=== PATIENT | female | born 1995 | race Caucasian/White ===

== ENCOUNTER → 2021-06-01 14:48 | Observation (INO) ==
[2021-06-01 14:39] LABS: Bilirubin,Urine Negative (Negative); Blood,Urine Negative (Negative); Clarity,Urine Turbid (Clear); Color,Urine Colorless (Yellow); Glucose,Urine (UA) Normal (Normal); Ketones,Urine Negative (Negative); Leukocyte Esterase,Urine Large (Negative); Nitrite,Urine Negative (Negative); Protein,Urine Negative (Neg-Trace); RBC,Urine 30-50 per hpf (0-3); Specific Gravity,Urine 1.005 (1.010-1.025); Squamous Epithelial Cell,Urine Moderate per hpf (None-Few); Urobilinogen,Urine Normal (Normal)
[2021-06-01 16:01] LABS: Candida DNA DETECTED (Not Detect); Gardnerella DNA DETECTED (Not Detect); Trichomonas DNA Not Detected (Not Detect)
== END | disposition home or self-care (01) ==
LOC: 1NENULAB
PROVIDERS: ADMIT Obstetrics & Gynecology; ATTEND Obstetrics & Gynecology

== ENCOUNTER 2021-07-21 04:00 | Inpatient (IN) ==
[2021-07-21] MEDS ORDERED: Famotidine 20 MG/2 ML VIAL IVP PRN (04:10)
[2021-07-21] MEDS ORDERED: Azithromycin 500 MG in 0.9 % Sodium Chloride 250 ML IVPB PRN (04:10)
[2021-07-21] MEDS ORDERED: miSOPROStoL 25 MCG TABLET PO PRN (04:10)
[2021-07-21] MEDS ORDERED: Ondansetron 4 MG/2 ML VIAL IVP PRN (04:10)
[2021-07-21] MEDS ORDERED: Naloxone 0.4 MG/ML INJ IVP PRN (04:10)
[2021-07-21] MEDS ORDERED: *HR* FentaNYL (PF) 100 MCG/2 ML VIAL IVP PRN (04:10)
[2021-07-21] MEDS ORDERED: Lidocaine 1% 20 ML MDV INFILT PRN (04:10)
[2021-07-21] MEDS ORDERED: Metoclopramide 10 MG/2 ML VIAL IVP PRN (04:10)
[2021-07-21 04:49] LABS: Basophils % 0.3 %; Eosinophils # 0.1 K/mcL (0.0-0.6); Eosinophils % 0.6 %; Hematocrit 36.2 % (35.3-44.9); Hemoglobin 12.3 g/dL (11.5-15.4); Immature Granulocytes % 0.5 % (0-4); Lymphocytes # 3.2 K/mcL (0.6-4.6); Lymphocytes % 29.1 %; Mean Corpuscular Hemoglobin 30.8 pg (28.0-33.3); Mean Corpuscular Volume 90.7 fL (83.0-100.0); Mean Platelet Volume 12.6 fL (9.4-12.4); Monocytes % 9.6 %; Neutrophils # 6.5 K/mcL (1.6-8.9); Platelet Count 157 K/mcL (140-400); Red Blood Count 3.99 M/mcL (3.82-4.97); Red Cell Distribution Width 12.3 % (11.5-14.5); Segmented Neutrophils % 59.9 %; White Blood Count 10.9 K/mcL (4.3-11.1)
[2021-07-21 04:59] LABS: Amphetamine Screen,Urine Negative ng/mL (Cutoff=1000); Barbiturate Screen,Urine Negative ng/mL (Cutoff=200); Benzodiazepines Screen,Urine Negative ng/mL (Cutoff=200); Cannabinoid Screen,Urine Negative ng/mL (Cutoff = 50); Cocaine Screen,Urine Negative ng/mL (Cutoff= 300); Creatinine,Urine 47 mg/dL; Opiate Screen,Urine Negative ng/mL (Cutoff=300); Phencyclidine Screen,Urine Negative ng/mL (Cutoff=25); Protein/Creatinine Ratio,Urine 0.17 mg/mg (0.00-0.20)
[2021-07-21 05:09] LABS: Alanine Aminotransferase 9 Units/L (7-52); Aspartate Amino Transferase 17 Units/L (13-39); BUN/Creatinine Ratio 10 (6-26); Blood Urea Nitrogen 7 mg/dL (6-20); Lactate Dehydrogenase 146 Units/L (140-271); Uric Acid 5.7 mg/dL (2.3-7.6); eGFR For African Americans > 60 (> 60); eGFR For Non-African Americans > 60 (> 60)
[2021-07-21] MEDS ORDERED: Penicillin G Potassium 5,000,000 UNIT in 0.9 % Sodium Chloride Mini Bag 100 ML IVPB ONE (05:12)
[2021-07-21 05:26] LABS: Influenza A PCR Negative (Negative); Influenza B PCR Negative (Negative); Resp. Syncytial Virus PCR Negative (Negative)
[2021-07-21 05:27] LABS: SARS-CoV-2 by PCR (In House) Positive (Negative)
[2021-07-21] MEDS ORDERED: Ringers Solution, Lactated 1,000 ML ONE ×3 (05:31→14:59)
[2021-07-21] MEDS ORDERED: EPHEDrine 50 MG/ML VIAL IVP PRN (06:11)
[2021-07-21] MEDS: *HR* Nalbuphine 10 MG/ML AMPUL IV PRN ×2 (10:52→12:53)
[2021-07-21] MEDS: Penicillin G Potassium 2,500,000 UNIT/105 ML MLS IVPB SCH ×4 (11:15→23:23)
[2021-07-21] MEDS ORDERED: Oxytocin 30 UNIT/503 ML BAG IVC SCH (11:15)
[2021-07-21] MEDS: Epidural Premix (fent/bupiv) 110 ML EP SCH ×2 (13:24→21:00)
[2021-07-21] MEDS ORDERED: Ringers Solution, Lactated 1,000 ML IVC SCH (15:00)
[2021-07-21] MEDS ORDERED: Famotidine 20 MG/2 ML VIAL IVP ONE (23:12)
[2021-07-22] MEDS: Epidural Premix (fent/bupiv) 110 ML EP SCH (02:45)
[2021-07-22] MEDS: Penicillin G Potassium 2,500,000 UNIT/105 ML MLS IVPB SCH (04:08)
[2021-07-22] MEDS ORDERED: Gentamicin 100 MG in 0.9 % Sodium Chloride 100 ML IVPB SCH (06:30)
[2021-07-22] MEDS ORDERED: *HR* HYDROmorphone (PF) 1 MG/ML SYRINGE IVP ONE (09:11)
[2021-07-22] MEDS ORDERED: Benzocaine/Menthol 56 GM AEROSOL SPRAY TP PRN (11:19)
[2021-07-22] MEDS ORDERED: OXYTOCIN/RINGERS LACTATE 10 UNIT/166.6 ML BAG IVC ONE (11:19)
[2021-07-22] MEDS ORDERED: Measles/Mumps/Rubella Vacc 0.5 ML VIAL SQ PRN (11:19)
[2021-07-22] MEDS ORDERED: Rho Immune Globulin 1,500 UNIT SYRINGE IM PRN (11:19)
[2021-07-22] MEDS ORDERED: Lanolin 7 G OINT...G. TP PRN (11:19)
[2021-07-22] MEDS ORDERED: Ondansetron ODT 4 MG TAB.RAPDIS SL PRN (11:19)
[2021-07-22] MEDS: *HR* OxyCODONE Immed Rel 5 MG TABLET PO PRN ×2 (12:33→23:40)
[2021-07-22] MEDS: Acetaminophen 325 MG TABLET PO SCH ×2 (13:08→22:19)
[2021-07-22] MEDS ORDERED: Methylergonovine 0.2 MG/ML AMPUL IM ONE (14:29)
[2021-07-22] MEDS: Ibuprofen 600 MG TABLET PO SCH ×2 (14:55→22:20)
[2021-07-22] MEDS ORDERED: *HR* HYDROmorphone 2 MG/ML SYRINGE IVP ONE (15:11)
[2021-07-23] MEDS: Acetaminophen 325 MG TABLET PO SCH ×3 (00:01→09:27)
[2021-07-23] MEDS: Ibuprofen 600 MG TABLET PO SCH ×2 (05:14→09:26)
[2021-07-23 05:20] VITALS: BP 122/81; PULSE 74; TEMP 97.7; O2SAT 99
[2021-07-23 05:38] LABS: Basophils % 0.2 %; Eosinophils # 0.1 K/mcL (0.0-0.6); Eosinophils % 0.8 %; Hematocrit 27.6 % (35.3-44.9); Immature Granulocytes % 0.5 % (0-4); Lymphocytes # 2.5 K/mcL (0.6-4.6); Lymphocytes % 16.4 %; Mean Corpuscular HGB Conc 33.7 g/dL (31.6-35.5); Mean Corpuscular Hemoglobin 30.7 pg (28.0-33.3); Mean Corpuscular Volume 91.1 fL (83.0-100.0); Mean Platelet Volume 12.1 fL (9.4-12.4); Monocytes # 1.2 K/mcL (0.0-1.3); Monocytes % 8.1 %; Neutrophils # 11.1 K/mcL (1.6-8.9); Platelet Count 112 K/mcL (140-400); Red Blood Count 3.03 M/mcL (3.82-4.97); Red Cell Distribution Width 12.4 % (11.5-14.5)
[2021-07-23 05:39] LABS: Hemoglobin 9.3 g/dL (11.5-15.4)
[2021-07-23] MEDS ORDERED: FLUoxetine 20 MG CAPSULE PO SCH (09:00)
[2021-07-23] MEDS ORDERED: Prenatal Vit/FA 1 EACH TABLET PO SCH (09:00)
== END 2021-07-23 14:30 | disposition home or self-care (01) | DRG 805 ==
LOC: 1NENULAB 04:02 → 1NENUOBS 07-22 12:25
PROVIDERS: ADMIT Student in an Organized Health Care Education/Training Program; ATTEND Student in an Organized Health Care Education/Training Program